=== PATIENT | male | born 1935 | race Caucasian/White ===

== ENCOUNTER → 2020-05-15 | Outpatient (CLI) | payer MEDICARE, OTHER ==
[~2020-05-15] MED LIST: ADULT LOW DOSE81 MG PO; AUGMENTIN 875-1 EACH PO; AZITHROMYCIN500 MG PO; BEE POLLEN580 MG PO; CATAPRES 0.1MG0.1 MG PO; CIPRO500 MG PO; COZAAR100 MG PO; DIOVAN80 MG PO; FLAGYL500 MG PO; FLOMAX0.4 MG PO; GLUCOTROL5 MG PO; HYDROCHLOROTHIA25 MG PO; JANUVIA100 MG PO; K-DUR TAB 20 M20 MEQ PO; KEPPRA 500 MG500 MG PO; LASIX20 MG PO; LEVAQUIN500 MG PO; LIPITOR TAB 1010 MG PO; LIPITOR80 MG PO; LOPRESSOR 25 MG25 MG PO; MICROZIDE12.5 MG PO; MULTI-VITAMIN1 EACH PO; PHENERGAN 12.12.5 M1 PO; PLAVIX75 MG PO; PREDNISONE 50 M50 MG PO; PROTONIX40 MG PO; TOPROL XL25 MG PO; ZOFRAN ODT 4 MG4 MG PO; ZOLOFT50 MG PO; ZYRTEC10 MG PO
== END ==
LOC: CT 11:43
DX: I71.2 Thoracic aortic aneurysm, without rupture (principal); I77.819 Aortic ectasia, unspecified site
CPT/HCPCS: 36415; 71275; 82565; Q9967

== ENCOUNTER → 2020-06-29 | Outpatient (CLI) | payer MEDICARE, OTHER | LOC: HEART 5 06-18 13:30 | DX: R00.2 Palpitations (principal) ==

== ENCOUNTER 2020-08-11 21:03 | Emergency (ER) | payer MEDICARE ==
[~2020-08-11 21:03] MED LIST changes: -ADULT LOW DOSE81 MG PO; -AUGMENTIN 875-1 EACH PO; -BEE POLLEN580 MG PO; -CIPRO500 MG PO; -DIOVAN80 MG PO; -FLAGYL500 MG PO; -HYDROCHLOROTHIA25 MG PO; -K-DUR TAB 20 M20 MEQ PO; -KEPPRA 500 MG500 MG PO; -LASIX20 MG PO; -LIPITOR80 MG PO; -LOPRESSOR 25 MG25 MG PO; -MULTI-VITAMIN1 EACH PO; -PHENERGAN 12.12.5 M1 PO; -PLAVIX75 MG PO; -PROTONIX40 MG PO; -ZOFRAN ODT 4 MG4 MG PO; -ZOLOFT50 MG PO; -ZYRTEC10 MG PO
[2020-08-11 21:43] LABS: HEMOGLOBIN 10.7 gm/dl (14.0-17.5); RED BLOOD COUNT 4.02 M/UL (4.20-5.50); WHITE BLOOD COUNT 7.3 K/UL (4.5-11.0)
[2020-08-11 22:03] LABS: BUN/CREATININE RATIO 25 (0-10)
[2020-08-13 01:14] LABS: ACINETOBACTER BAUMANNII Not Detected (Negative); CANDIDA ALBICANS Not Detected (Negative); CANDIDA KRUSEI Not Detected (Negative); CANDIDA TROPICALIS Not Detected (Negative); ENTEROCOCCUS Not Detected (Negative); ESCHERICHIA COLI Not Detected (Negative); HAEMOPHILUS INFLUENZAE Not Detected (Negative); KLEBSIELLA OXYTOCA Not Detected (Negative); KLEBSIELLA PNEUMONIAE Not Detected (Negative); KPC-CARBAPENEM-RESISTANCE GENE Not Detected (Negative); PROTEUS Not Detected (Negative); PSEUDOMONAS AERUGINOSA Not Detected (Negative); SERRATIA MARCESANS Not Detected (Negative); STAPHYLOCOCCUS AUREUS Not Detected (Negative); STREP AGALACTIAE (GROUP B) Not Detected (Negative); STREP PYOGENES (GROUP A) Not Detected (Negative); STREPTOCOCCUS Not Detected (Negative); mecA (METHICILLIN RESIST GENE Not Detected (Negative); vanA/B (VANCOMYCIN RESIST GENE Not Detected (Negative)
[2020-08-13 02:37] LABS: STAPHYLOCOCCUS DETECTED (Negative)
== END 2020-08-12 02:00 | disposition home or self-care (01) ==
LOC: ER1 21:03
PROVIDERS: Family Medicine
DX: K04.7 Periapical abscess without sinus (principal); F17.210 Nicotine dependence, cigarettes, uncomplicated
CPT/HCPCS: 70450; 71045; 80053; 81001; 82550; 82553; 83874; 84484; 85025; 85610; 85730; 87040; 87077; 87150; 87186; 93005; 99285

== ENCOUNTER 2020-09-17 20:34 | Emergency (ER) | payer MEDICARE ==
[2020-09-17 21:24] LABS: HEMOGLOBIN 11.4 gm/dl (14.0-17.5); RED BLOOD COUNT 4.23 M/UL (4.20-5.50)
[2020-09-17 21:47] LABS: BUN/CREATININE RATIO 21 (0-10)
[2020-09-17] MEDS ORDERED: AUGMENTIN 875-1 EACH PO (23:27)
[2020-09-17] MEDS ORDERED: ZOFRAN ODT 4 MG4 MG PO (23:27)
[2020-09-17] MEDS ORDERED: PHENERGAN 12.12.5 M1 PO (23:27)
[2020-09-18] MEDS ORDERED: LOPRESSOR 25 MG25 MG PO (10:45)
[2020-09-18] MEDS ORDERED: K-DUR TAB 20 M20 MEQ PO (10:46)
[2020-09-18] MEDS ORDERED: DIOVAN80 MG PO (10:46)
[2020-09-18] MEDS ORDERED: HYDROCHLOROTHIA25 MG PO (10:47)
[2020-09-18] MEDS ORDERED: ZYRTEC10 MG PO (10:47)
[2020-09-18] MEDS ORDERED: PROTONIX40 MG PO (10:47)
[2020-09-18] MEDS ORDERED: LASIX20 MG PO (10:48)
[2020-09-18] MEDS ORDERED: PLAVIX75 MG PO (10:48)
[2020-09-18] MEDS ORDERED: LIPITOR80 MG PO (10:48)
[2020-09-18] MEDS ORDERED: ZOLOFT50 MG PO (10:49)
[2020-09-18] MEDS ORDERED: ADULT LOW DOSE81 MG PO (10:50)
[2020-09-18] MEDS ORDERED: BEE POLLEN580 MG PO (10:51)
[2020-09-18] MEDS ORDERED: MULTI-VITAMIN1 EACH PO (10:53)
== END 2020-09-18 00:50 | disposition home or self-care (01) ==
LOC: ER1 20:34
PROVIDERS: Emergency Medicine
DX: K52.9 Noninfective gastroenteritis and colitis, unspecified (principal); Z85.038 Personal history of other malignant neoplasm of large intestine; Z85.46 Personal history of malignant neoplasm of prostate; Z20.822 Contact with and (suspected) exposure to COVID-19
CPT/HCPCS: 0240U; 71045; 80053; 81001; 82550; 82553; 83605; 83690; 84484; 85025; 85610; 85730; 93005; 96374; 99284; J2405; J7030

== ENCOUNTER 2020-09-18 04:29 | Inpatient (IN) | payer MEDICARE ==
[~2020-09-18] VITALS: Ht 180.3 cm; Wt 112.2 kg
[~2020-09-18 04:29] MED LIST changes: +AUGMENTIN 875-1 EACH PO; +PHENERGAN 12.12.5 M1 PO; +ZOFRAN ODT 4 MG4 MG PO
[2020-09-18 05:11] LABS: HEMOGLOBIN 11.4 gm/dl (14.0-17.5); RED BLOOD COUNT 4.25 M/UL (4.20-5.50)
[2020-09-18 05:16] LABS: WHITE BLOOD COUNT 11.5 K/UL (4.5-11.0)
[2020-09-18 06:40] LABS: BUN/CREATININE RATIO 23 (0-10)
[2020-09-18] MEDS ORDERED: LOPRESSOR 25 MG25 MG PO (10:45)
[2020-09-18] MEDS ORDERED: DIOVAN80 MG PO (10:46)
[2020-09-18] MEDS ORDERED: K-DUR TAB 20 M20 MEQ PO (10:46)
[2020-09-18] MEDS ORDERED: HYDROCHLOROTHIA25 MG PO (10:47)
[2020-09-18] MEDS ORDERED: ZYRTEC10 MG PO (10:47)
[2020-09-18] MEDS ORDERED: PROTONIX40 MG PO (10:47)
[2020-09-18 10:48] LABS: BUN/CREATININE RATIO 22 (0-10)
[2020-09-18] MEDS ORDERED: PLAVIX75 MG PO (10:48)
[2020-09-18] MEDS ORDERED: LASIX20 MG PO (10:48)
[2020-09-18] MEDS ORDERED: LIPITOR80 MG PO (10:48)
[2020-09-18] MEDS ORDERED: ZOLOFT50 MG PO (10:49)
[2020-09-18] MEDS ORDERED: ADULT LOW DOSE81 MG PO (10:50)
[2020-09-18] MEDS ORDERED: BEE POLLEN580 MG PO (10:51)
[2020-09-18] MEDS ORDERED: MULTI-VITAMIN1 EACH PO (10:53)
[2020-09-18 13:15] LABS: BUN/CREATININE RATIO 22 (0-10)
[2020-09-18 16:51] LABS: BUN/CREATININE RATIO 21 (0-10)
[2020-09-18 21:40] LABS: BUN/CREATININE RATIO 19 (0-10)
[2020-09-19 03:42] LABS: HEMOGLOBIN 9.3 gm/dl (14.0-17.5); RED BLOOD COUNT 3.49 M/UL (4.20-5.50); WHITE BLOOD COUNT 8.5 K/UL (4.5-11.0)
[2020-09-20 01:53] LABS: HEMOGLOBIN 9.8 gm/dl (14.0-17.5); RED BLOOD COUNT 3.65 M/UL (4.20-5.50); WHITE BLOOD COUNT 9.2 K/UL (4.5-11.0)
[2020-09-20 02:10] LABS: BUN/CREATININE RATIO 16 (0-10)
[2020-09-20 04:55] LABS: ADENOVIRUS F 40/41 Not Detected (Negative); ASTROVIRUS Not Detected (Negative); CAMPYLOBACTER Not Detected (Negative); CLOSTRIDIUM DIFFICILE TOX A/B Not Detected (Negative); CRYPTOSPORIDIUM Not Detected (Negative); E.COLI 0157 Not Detected (Negative); ENTAMOEBA HISTOLYTICA Not Detected (Negative); ENTEROAGGREGATIVE E.COLI (EAEC Not Detected (Negative); ENTEROPATHOGENIC E.COLI (EPEC) Not Detected (Negative); ENTEROTOXIGENIC E.COLI (ETEC) Not Detected (Negative); GIARDIA LAMBLIA Not Detected (Negative); NOROVIRUS GI/GII Not Detected (Negative); PLESIOMONAS SHIGELLOIDES Not Detected (Negative); ROTOVIRUS A Not Detected (Negative); SALMONELLA Not Detected (Negative); SAPOVIRUS Not Detected (Negative); SHIG/ENTEROINVAS.ECOLI (EIEC) Not Detected (Negative); SHIGA-LIK TOX.PRO.E.COLI (STEC Not Detected (Negative); VIBRIO Not Detected (Negative); VIBRIO CHOLERAE Not Detected (Negative); YERSINIA ENTEROCOLITICA Not Detected (Negative)
[2020-09-20] MEDS ORDERED: KEPPRA 500 MG500 MG PO (09:20)
[2020-09-20] MEDS ORDERED: FLAGYL500 MG PO (09:24)
[2020-09-20] MEDS ORDERED: CIPRO500 MG PO (09:24)
== END 2020-09-20 14:58 | disposition home or self-care (01) | DRG 101 ==
LOC: ER1 04:29 → CDU 08:46 → PROG CARE 11:03
PROVIDERS: Emergency Medicine; Physician Assistant; ADMIT Internal Medicine
DX: G40.909 Epilepsy, unspecified, not intractable, without status epilepticus (principal); E87.1 Hypo-osmolality and hyponatremia; E87.2 Acidosis; N13.30 Unspecified hydronephrosis; I69.354 Hemiplegia and hemiparesis following cerebral infarction affecting left non-dominant side; Z20.822 Contact with and (suspected) exposure to COVID-19; E86.0 Dehydration; E11.9 Type 2 diabetes mellitus without complications; E66.9 Obesity, unspecified; E78.5 Hyperlipidemia, unspecified; I10 Essential (primary) hypertension; Z79.82 Long term (current) use of aspirin; Z93.3 Colostomy status; Z68.34 Body mass index [BMI] 34.0-34.9, adult; Z85.828 Personal history of other malignant neoplasm of skin; Z85.038 Personal history of other malignant neoplasm of large intestine; Z79.4 Long term (current) use of insulin; Z88.2 Allergy status to sulfonamides; Z90.49 Acquired absence of other specified parts of digestive tract; Z80.9 Family history of malignant neoplasm, unspecified
CPT/HCPCS: 36415; 70450; 71045; 80048; 80053; 82550; 82553; 82962; 83605; 83690; 83735; 84100; 84132; 84439; 84443; 84484; 85025; 85027; 87040; 87507; 96365; 96375; 99285; J1953; J1956; J2405; J2543; J2550; J3475; J7030; U0002

== ENCOUNTER 2020-10-13 16:36 | Emergency (ER) | payer MEDICARE ==
[~2020-10-13 16:36] MED LIST changes: +ADULT LOW DOSE81 MG PO; +BEE POLLEN580 MG PO; +CIPRO500 MG PO; +DIOVAN80 MG PO; +FLAGYL500 MG PO; +HYDROCHLOROTHIA25 MG PO; +K-DUR TAB 20 M20 MEQ PO; +KEPPRA 500 MG500 MG PO; +LASIX20 MG PO; +LIPITOR80 MG PO; +LOPRESSOR 25 MG25 MG PO; +MULTI-VITAMIN1 EACH PO; +PLAVIX75 MG PO; +PROTONIX40 MG PO; +ZOLOFT50 MG PO; +ZYRTEC10 MG PO
[2020-10-13 19:34] LABS: HEMOGLOBIN 12.6 gm/dl (14.0-17.5); RED BLOOD COUNT 4.56 M/UL (4.20-5.50); WHITE BLOOD COUNT 9.1 K/UL (4.5-11.0)
[2020-10-13 19:55] LABS: BUN/CREATININE RATIO 23 (0-10)
== END 2020-10-14 02:30 | disposition home or self-care (01) ==
LOC: ER1 16:36
PROVIDERS: Physician Assistant Medical
DX: K62.5 Hemorrhage of anus and rectum (principal); N13.30 Unspecified hydronephrosis; C18.9 Malignant neoplasm of colon, unspecified; E11.9 Type 2 diabetes mellitus without complications; I10 Essential (primary) hypertension; Z86.73 Personal history of transient ischemic attack (TIA), and cerebral infarction without residual deficits; Z79.01 Long term (current) use of anticoagulants; Z79.02 Long term (current) use of antithrombotics/antiplatelets; Z88.1 Allergy status to other antibiotic agents
CPT/HCPCS: 80053; 81001; 82378; 82962; 83605; 85025; 85610; 87086; 99284; Q9967

== ENCOUNTER 2021-03-06 20:28 | Emergency (ER) | payer MEDICARE ==
[2021-03-06 20:46] LABS: RED BLOOD COUNT 4.41 M/UL (4.20-5.50)
[2021-03-06 21:11] LABS: BUN/CREATININE RATIO 16 (0-10)
[2021-03-06 22:06] LABS: BORDETELLA PARAPERTUSSIS Not Detected (Not Detectd); BORDETELLA PERTUSSIS Not Detected (Not Detectd); CHLAMYDIA PNEUMONIAE Not Detected (Not Detectd); CORONAVIRUS HKU1 Not Detected (Not Detectd); CORONAVIRUS NL63 Not Detected (Not Detectd); CORONAVIRUS OC43 Not Detected (Not Detectd); CORONOAVIRUS 229E Not Detected (Not Detectd); HUMAN METAPNEUMOVIRUS Not Detected (Not Detectd); INFLUENZA A Not Detected (Not Detectd); INFLUENZA B Not Detected (Not Detectd); MYCOPLASMA PNEUMONIAE Not Detected (Not Detectd); PARAINFLUENZA VIRUS 1 Not Detected (Not Detectd); PARAINFLUENZA VIRUS 2 Not Detected (Not Detectd); PARAINFLUENZA VIRUS 3 Not Detected (Not Detectd); PARAINFLUENZA VIRUS 4 Not Detected (Not Detectd); RESPIRATORY SYNCYTIAL VIRUS Not Detected (Not Detectd)
[2021-03-06 23:05] LABS: HUMAN RHINOVIRUS/ENTEROVIRUS DETECTED (Not Detectd); SARS-CoV-2 NOT DETECTED (Not Detectd)
[2021-03-07] MEDS ORDERED: BENZONATATE200 MG PO (00:13)
[2021-03-07] MEDS ORDERED: AUGMENTIN 875-1 EACH PO (00:13)
== END 2021-03-07 00:30 | disposition home or self-care (01) ==
LOC: ER1 20:28
PROVIDERS: Physician Assistant
DX: I10 Essential (primary) hypertension (principal); J32.9 Chronic sinusitis, unspecified; J02.9 Acute pharyngitis, unspecified; J40 Bronchitis, not specified as acute or chronic; Z20.822 Contact with and (suspected) exposure to COVID-19; Z88.1 Allergy status to other antibiotic agents
CPT/HCPCS: 71045; 80053; 82550; 82553; 83874; 84484; 85025; 87081; 87633; 87880; 93005; 94664; 96374; 99284; J0360

== ENCOUNTER 2021-11-02 22:41 | Inpatient (IN) | payer MEDICARE ==
[~2021-11-02] VITALS: Ht 180.3 cm; Wt 117.0 kg
[~2021-11-02 22:41] MED LIST changes: +BENZONATATE200 MG PO; +DIOVAN320 MG PO; -DIOVAN80 MG PO; -K-DUR TAB 20 M20 MEQ PO; +K-TAB ER20 MEQ PO
[2021-11-03 00:15] LABS: HEMOGLOBIN 10.5 gm/dl (14.0-17.5); RED BLOOD COUNT 3.87 M/UL (4.20-5.50); WHITE BLOOD COUNT 9.6 K/UL (4.5-11.0)
[2021-11-03 00:34] LABS: BUN/CREATININE RATIO 19 (0-10)
[2021-11-03] MEDS ORDERED: KEPPRA500 MG PO (09:46)
[2021-11-03] MEDS ORDERED: FEXOFENADINE H180 MG PO (09:51)
[2021-11-03] MEDS ORDERED: DEXAMETHASONE2 MG PO (09:54)
[2021-11-03] MEDS ORDERED: AZITHROMYCIN250 MG PO (09:54)
[2021-11-03] MEDS ORDERED: METOPROLOL SUCC50 MG PO (09:55)
[2021-11-03] MEDS ORDERED: SPIRONOLACTONE25 MG PO (09:55)
[2021-11-03] MEDS ORDERED: ISOSORBIDE MONO30 MG PO (09:55)
[2021-11-03] MEDS ORDERED: HYDRALAZINE HCL50 MG PO (09:55)
[2021-11-03] MEDS ORDERED: FLOMAX 0.4 MG0.4 MG PO (09:56)
[2021-11-04 06:26] LABS: RED BLOOD COUNT 4.02 M/UL (4.20-5.50); WHITE BLOOD COUNT 8.5 K/UL (4.5-11.0)
[2021-11-04 07:04] LABS: BUN/CREATININE RATIO 33 (0-10)
[2021-11-05 06:59] LABS: HEMOGLOBIN 10.6 gm/dl (14.0-17.5); RED BLOOD COUNT 3.86 M/UL (4.20-5.50); WHITE BLOOD COUNT 9.3 K/UL (4.5-11.0)
[2021-11-05 07:06] LABS: BUN/CREATININE RATIO 32 (0-10)
[2021-11-06 06:19] LABS: HEMOGLOBIN 12.2 gm/dl (14.0-17.5)
[2021-11-06 06:25] LABS: RED BLOOD COUNT 4.51 M/UL (4.20-5.50); WHITE BLOOD COUNT 12.2 K/UL (4.5-11.0)
[2021-11-06 06:45] LABS: BUN/CREATININE RATIO 27 (0-10)
[2021-11-07 07:19] LABS: RED BLOOD COUNT 4.08 M/UL (4.20-5.50); WHITE BLOOD COUNT 10.9 K/UL (4.5-11.0)
[2021-11-07 07:48] LABS: BUN/CREATININE RATIO 29 (0-10)
--- NOTE | 2021-11-07 13:05 | NUR ---
REFERRAL FOR HOME HEALTH HAS BEEN SENT TO [phone]. PATIENT'S SPOUSE IS AWARE TO CALL THEM AT ABOVE NUMBER IF SHE HAS NOT HEARD FROM THEM BY MONDAY OF THIS WEEK.
[2021-11-07] MEDS ORDERED: DECADRON6 MG PO (14:35)
[2021-11-07] MEDS ORDERED: COMBIVENT RESPIM4 GM INH (14:35)
[2021-11-07] MEDS ORDERED: HYDRALAZINE HCL25 MG PO (14:35)
[2021-11-07] MEDS ORDERED: LEVOFLOXACIN750 MG PO (14:38)
[2021-11-07] MEDS ORDERED: ELIQUIS 2.5 MG2.5 MG PO (14:38)
[2021-11-07] MEDS ORDERED: PHENERGAN 25 MG25 M1 PO (14:39)
[2021-11-07] MEDS ORDERED: HYDRALAZINE HCL50 MG PO (14:45)
[2021-11-07] MEDS ORDERED: HUMIBID LA TAB600 MG PO (14:45)
[2021-11-07] MEDS ORDERED: LACTINEX TABLET1 EA PO (15:30)
[2021-11-07] MEDS ORDERED: AMOX TR-K CLV1 EAC4 PO (15:34)
[2021-11-07] MEDS ORDERED: DOXYCYCLINE HY100 M2 PO (15:34)
== END 2021-11-07 16:45 | disposition home health service (06) | DRG 177 ==
LOC: ER1 22:41 → CDU 11-03 02:39 → MED SURG 4 11-03 02:39
PROVIDERS: Emergency Medicine; Internal Medicine; ADMIT Internal Medicine
PROC: XW033E5 Introduction of Remdesivir Anti-infective into Peripheral Vein, Percutaneous Approach, New Technology Group 5 (ICD-10-PCS; principal; 2021-11-03)
PROC: 8E0ZXY6 Isolation (ICD-10-PCS; 2021-11-03)
PROC: 3E0333Z Introduction of Anti-inflammatory into Peripheral Vein, Percutaneous Approach (ICD-10-PCS; 2021-11-03)
DX: U07.1 COVID-19 (principal); J12.82 Pneumonia due to coronavirus disease 2019; J96.01 Acute respiratory failure with hypoxia; J15.9 Unspecified bacterial pneumonia; E87.1 Hypo-osmolality and hyponatremia; I69.352 Hemiplegia and hemiparesis following cerebral infarction affecting left dominant side; E03.9 Hypothyroidism, unspecified; I10 Essential (primary) hypertension; E83.42 Hypomagnesemia; L89.312 Pressure ulcer of right buttock, stage 2; E11.9 Type 2 diabetes mellitus without complications; Z85.038 Personal history of other malignant neoplasm of large intestine; Z85.828 Personal history of other malignant neoplasm of skin; Z82.49 Family history of ischemic heart disease and other diseases of the circulatory system; Z88.8 Allergy status to other drugs, medicaments and biological substances; Z93.3 Colostomy status; Z74.01 Bed confinement status; Z79.82 Long term (current) use of aspirin; Z79.899 Other long term (current) drug therapy; Z79.02 Long term (current) use of antithrombotics/antiplatelets
CPT/HCPCS: 0240U; 36415; 36600; 71045; 80053; 81001; 82533; 82550; 82553; 82728; 82803; 82962; 83735; 84100; 84439; 84443; 84484; 85025; 85027; 86140; 87086; 94640; 94664; 94760; 96374; 99285; J0248; J0360; J1100; J1650; J1956; J3475; J7030

== ENCOUNTER 2021-11-27 09:44 | Emergency (ER) | payer MEDICARE ==
[~2021-11-27 09:44] MED LIST changes: +AMOX TR-K CLV1 EAC4 PO; +AZITHROMYCIN250 MG PO; +COMBIVENT RESPIM4 GM INH; +DECADRON6 MG PO; +DEXAMETHASONE2 MG PO; +DOXYCYCLINE HY100 M2 PO; +ELIQUIS 2.5 MG2.5 MG PO; +FEXOFENADINE H180 MG PO; +FLOMAX 0.4 MG0.4 MG PO; +HUMIBID LA TAB600 MG PO; +HYDRALAZINE HCL25 MG PO; +HYDRALAZINE HCL50 MG PO; +ISOSORBIDE MONO30 MG PO; +KEPPRA500 MG PO; +LACTINEX TABLET1 EA PO; +LEVOFLOXACIN750 MG PO; +METOPROLOL SUCC50 MG PO; +PHENERGAN 25 MG25 M1 PO; +SPIRONOLACTONE25 MG PO
[2021-11-27 10:35] LABS: HEMOGLOBIN 10.9 gm/dl (14.0-17.5); RED BLOOD COUNT 4.06 M/UL (4.20-5.50)
[2021-11-27 10:53] LABS: BUN/CREATININE RATIO 19 (0-10)
== END 2021-11-27 17:22 | disposition home or self-care (01) ==
LOC: ER1 09:44
PROVIDERS: Physician Assistant
DX: K62.81 Anal sphincter tear (healed) (nontraumatic) (old) (principal); I10 Essential (primary) hypertension; Z86.16 Personal history of COVID-19; Z87.01 Personal history of pneumonia (recurrent); Z86.73 Personal history of transient ischemic attack (TIA), and cerebral infarction without residual deficits; Z93.3 Colostomy status; Z79.01 Long term (current) use of anticoagulants; Z88.1 Allergy status to other antibiotic agents; Z79.02 Long term (current) use of antithrombotics/antiplatelets; Z51.81 Encounter for therapeutic drug level monitoring
CPT/HCPCS: 80053; 85025; 85610; 86850; 86900; 86901; 99284; Q9967

== ENCOUNTER 2021-11-29 12:28 | Emergency (ER) | payer MEDICARE ==
[2021-11-29 12:52] LABS: HEMOGLOBIN 9.6 gm/dl (14.0-17.5); WHITE BLOOD COUNT 7.1 K/UL (4.5-11.0)
[2021-11-29 12:53] LABS: RED BLOOD COUNT 3.53 M/UL (4.20-5.50)
[2021-11-29 13:17] LABS: BUN/CREATININE RATIO 17 (0-10)
== END 2021-11-29 22:41 | disposition home or self-care (01) ==
LOC: ER1 12:28
PROVIDERS: Physician Assistant
DX: K62.5 Hemorrhage of anus and rectum (principal); D64.9 Anemia, unspecified; E11.9 Type 2 diabetes mellitus without complications; I10 Essential (primary) hypertension; Z86.73 Personal history of transient ischemic attack (TIA), and cerebral infarction without residual deficits; Z85.828 Personal history of other malignant neoplasm of skin; Z85.038 Personal history of other malignant neoplasm of large intestine
CPT/HCPCS: 71045; 80053; 82550; 82553; 84484; 85025; 85610; 85730; 93005; 99284

== ENCOUNTER → 2022-01-14 | Emergency (ER) | payer MEDICARE ==
[2022-01-14 13:55] LABS: HEMOGLOBIN 9.5 gm/dl (14.0-17.5); RED BLOOD COUNT 3.58 M/UL (4.20-5.50); WHITE BLOOD COUNT 7.2 K/UL (4.5-11.0)
[2022-01-14 14:38] LABS: BUN/CREATININE RATIO 14 (0-10)
== END | disposition home or self-care (01) ==
LOC: ER1 13:04
PROVIDERS: Family Medicine
DX: R47.81 Slurred speech (principal); I25.2 Old myocardial infarction; E11.9 Type 2 diabetes mellitus without complications; I10 Essential (primary) hypertension; Z86.73 Personal history of transient ischemic attack (TIA), and cerebral infarction without residual deficits
CPT/HCPCS: 70450; 71045; 80053; 80307; 81001; 82550; 82553; 83605; 83880; 84484; 85025; 85610; 85730; 87040; 93005; 99285

== ENCOUNTER 2022-01-19 19:02 | Observation (INO) | payer MEDICARE ==
[~2022-01-19] VITALS: Ht 185.4 cm; Wt 128.4 kg
[2022-01-19 20:41] LABS: HEMOGLOBIN 9.2 gm/dl (14.0-17.5); RED BLOOD COUNT 3.36 M/UL (4.20-5.50); WHITE BLOOD COUNT 9.1 K/UL (4.5-11.0)
[2022-01-19 21:00] LABS: BUN/CREATININE RATIO 15 (0-10)
[2022-01-20] MEDS ORDERED: ALBUTEROL2.5 MG/3 M INH (17:21)
[2022-01-20] MEDS ORDERED: FEXOFENADINE H180 MG PO (17:22)
[2022-01-20] MEDS ORDERED: BEE POLLEN550 MG PO (17:24)
[2022-01-20] MEDS ORDERED: CLONIDINE HCL0.1 MG PO (17:25)
[2022-01-20] MEDS ORDERED: FLONASE 0.05% N16 GM (17:30)
[2022-01-20] MEDS ORDERED: HYDRALAZINE HCL50 MG PO (17:41)
[2022-01-20] MEDS ORDERED: JANUVIA100 MG PO (17:43)
[2022-01-20] MEDS ORDERED: SERTRALINE HCL50 MG PO (17:46)
[2022-01-20] MEDS ORDERED: VITAMIN C1000 MG PO (17:47)
[2022-01-20] MEDS ORDERED: XYZAL5 MG PO (17:47)
[2022-01-21 04:12] LABS: HEMOGLOBIN 9.4 gm/dl (14.0-17.5); RED BLOOD COUNT 3.46 M/UL (4.20-5.50); WHITE BLOOD COUNT 9.4 K/UL (4.5-11.0)
--- NOTE | 2022-01-21 16:15 | NUR ---
PT'S BED FOUND MULTIPLE TIMES IN A HIGH POSITION WITH UPPER BED RAILS DOWN. INSTRUCTED CAREGIVER TO KEEP RAILS UP AND BED IN LOW POSITION FOR PT SAFETY.
--- NOTE | 2022-01-21 16:44 | NUR ---
O2 SAT 85-89% ON ROOM AIR. AWARE.
--- NOTE | 2022-01-23 08:14 | NUR ---
LE - 01/22/22 1400 - BP MED NOT GIVEN R/T BP 102/54. MD AT [facility] [place] [facility]. 01/22/22 1700 - BS 128. NO SSI GIVEN 01/22/22 1530 - DC INSTRUCTIONS GIVEN TO CONSTRUCTION CONTROLLER AT BEDSIDE. SPOKE WITH PT'S - ARYAN SYKES. EXPLAINED DC INSTRUCTIONS AT LENGTH WITH HER. EMS NOTIFIED OF NEED FOR TRANSPORT. SPOKE WITH CAPT. ROLA GODOY WITH [facility] INFO FAXED. AWAITING TRANSPORT 01/22/22 170 - EMS NOTIFIED RE: ETA ON TRANSFER. RECEIVED RETURN CALL FROM CAPT ROLA GODOY WHO STATED THAT HE COULD NOT GIVE ME AN ETA. ONLY 3 [facility] RUNNING IN THE [facility] WOULD BE HANDLED FIRST. CONSTRUCTION CONTROLLER AT BEDSIDE AND UPDATED. 01/22/22 1830 - SPOKE WITH EMS RE: TRANSPORT ETA. INFORMED THAT IT WAS SHIFT CHANGE AND THEY WOULD TRANSPORT WHEN AN AMBULANCE WAS AVAILABLE. CONSTRUCTION CONTROLLER UPDATED.
--- NOTE | 2022-01-23 08:27 | NUR ---
0805 - [facility] HERE TO TRANSPORT PT HOME. CARETAKERS AT BEDSIDE AND TOOK PT'S PERSONAL BELONGINGS. REINFORCED PREVIOUS DC INSTRUCTIONS WITH TELEGRAPH OFFICE ROUTE AIDE. PT STABLE AND AGREEABLE FOR TRANSPORT.
== END 2022-01-23 08:07 | disposition home or self-care (01) ==
LOC: ER1 19:02 → CDU 01-20 11:32 → MED SURG 4 01-20 13:03
PROVIDERS: Physician Assistant; Physician Assistant Medical; ADMIT Internal Medicine
DX: J96.01 Acute respiratory failure with hypoxia (principal); I10 Essential (primary) hypertension; E87.70 Fluid overload, unspecified; N13.30 Unspecified hydronephrosis; E11.9 Type 2 diabetes mellitus without complications; E87.1 Hypo-osmolality and hyponatremia; I69.954 Hemiplegia and hemiparesis following unspecified cerebrovascular disease affecting left non-dominant side; Z86.16 Personal history of COVID-19; Z20.822 Contact with and (suspected) exposure to COVID-19; Z85.038 Personal history of other malignant neoplasm of large intestine; Z85.828 Personal history of other malignant neoplasm of skin; Z90.49 Acquired absence of other specified parts of digestive tract; Z74.01 Bed confinement status; Z88.1 Allergy status to other antibiotic agents; Z88.2 Allergy status to sulfonamides; Z79.84 Long term (current) use of oral hypoglycemic drugs; Z79.82 Long term (current) use of aspirin; Z79.02 Long term (current) use of antithrombotics/antiplatelets; Z79.899 Other long term (current) drug therapy
CPT/HCPCS: ECHO; 36600; 71045; 71250; 80048; 80053; 81001; 82550; 82553; 82803; 82962; 83605; 83735; 83880; 84484; 85025; 85027; 93005; 93306; 94664; 94760; 96365; 96366; 96372; 96374; 96375; 96376; 97163; 99285; G0378; J1650; J1940; J3475; U0002